=== PATIENT | female | born 1985 | race Caucasian/White ===

== ENCOUNTER 2017-07-27 20:13 | Inpatient (IN) | payer MEDICAID, OTHER ==
[2017-07-27] MEDS ORDERED: Ondansetron 4 MG Tab.DIS PO PRN (20:38)
[2017-07-27] MEDS ORDERED: Albuterol 8 GM Inhaler INH PRN (20:49)
[2017-07-27] MEDS ORDERED: Alum Hydrox/Mag Hydrox/Simeth 15 ML, Lidocaine 2% 15 ML PO PRN ×2 (20:56)
[2017-07-27] MEDS ORDERED: Calcium Carbonate 500 MG Tab.Chew PO PRN (20:58)
[2017-07-27] MEDS ORDERED: SUMAtriptan 50 MG Tab PO PRN (21:00)
[2017-07-27] MEDS ORDERED: Prazosin 1 MG Cap PO SCH (21:00)
[2017-07-27] MEDS ORDERED: Gabapentin 250 MG/5 ML Solution ML 470 ML Bottle PO SCH (21:00)
[2017-07-27] MEDS ORDERED: Ferrous Sulfate Solution 220 MG/5 ML ML 473 ML Bottle PO SCH (21:15)
[2017-07-27] MEDS: Acetaminophen Soln 650 MG/20.3 ML UD Cup PO PRN (21:52)
[2017-07-27] MEDS: ClonazePAM 1 MG Tab PO PRN (21:52)
[2017-07-27] MEDS: Pantoprazole 40 MG Vial IVPUSH SCH (21:53)
[2017-07-27] MEDS: Dextrose 5%-Lactated Ringers 1,000 ML IV SCH (23:05)
[2017-07-28] MEDS: hydrOXYzine HCl 25 MG Tab PO PRN ×2 (01:00→10:31)
[2017-07-28] MEDS: Sucralfate Suspension 1 GM/10 ML Cup PO SCH ×2 (08:27→10:31)
[2017-07-28] MEDS: Acetaminophen Soln 650 MG/20.3 ML UD Cup PO PRN (08:27)
[2017-07-28] MEDS ORDERED: lamoTRIgine 25 MG Tab PO SCH (09:00)
[2017-07-28] MEDS ORDERED: Gabapentin 250 MG/5 ML Solution ML 470 ML Bottle PO SCH (09:00)
[2017-07-28] MEDS: Dextrose 5%-Lactated Ringers 1,000 ML IV SCH (09:15)
[2017-07-28] MEDS ORDERED: Iron Sucrose Complex 500 MG in Sodium Chloride 0.9% 250 ML IV ONE (10:00)
[2017-07-28] MEDS: Pantoprazole 40 MG Vial IVPUSH SCH (10:08)
[2017-07-28] MEDS: ClonazePAM 1 MG Tab PO PRN (10:11)
[2017-07-28] MEDS: Ferrous Sulfate 325 MG Tab PO SCH ×2 (10:40→12:28)
--- NOTE | 2017-07-28 10:40 | CR ---
Abdomen 2V AP Flat Upright INDICATION: abdominal pain FINDINGS: Normal bowel gas pattern. No evidence for small bowel obstruction or free air. Postoperativ e changes in the left upper quadrant. Moderate stool throughout the colon.
[2017-07-28] MEDS ORDERED: MVI, Adult with Vitamin K 10 ML, Thiamine 100 MG, Magnesium Sulfate 2 GM, Folic Acid 1 ... IV ONE ×5 (14:00)
--- NOTE | 2017-07-28 15:27 | HP ---
HISTORY OF PRESENT ILLNESS: Catherine Alvarenga is a 31-year-old female who was admitted by ambulance to [facility] by the request of Rome Boyd on 07/27/2017. She went to the [facility], stating that she kept passing out. History of Lizett-en-Y gastric bypass surgery approximately 15 years ago. She was recently hospitalized for a bleeding ulcer at [facility]. She had an EGD, where she had the area of the bleeding ulcer repaired. She refuses to go back to [facility] and requested to come to [place] to see the Bariatric Surgery Department. Past medical history was reviewed. This morning, Catherine was reporting abdominal pain in her right and left lower abdominal quadrants. She states the pain is stabbing, sharp, and radiates to her back. Pain scale is 9/10. Chronicity: 5 years. Course: States it is about the same. Aggravating Factors: She states she has been constipated for 15 years and takes everything that she can think of to help with the constipation. Has not been able to eat, she states, for 5 years. Associated Signs And Symptoms: No nausea or vomiting. She thinks she has had some black stools. Denies heartburn. Denies reflux. Significant history of bleeding ulcer. She had a bleeding ulcer 5 years ago, which she said it was "patched," and she had a bleeding ulcer in the middle of June. Hemoglobin was as low as 7, she states. She had it, she said, fixed with an endoscopy, but she wants the ulcer out. Catherine states that she came here to [place] to have surgery. She wants a revision of her Lizett-en-Y surgery to lose weight. Her surgery for her Lizett-en-Y was 04/03/2003. Consult weight was 320, lowest weight 145, and she stabilizes, she said, between 170 and 200. Surgery was done in [place], [place]. SOCIAL HISTORY: Single. Employment, nonapplicable. Children, one daughter, age 8. Currently lives with family, takes care of her mom, who has a back stimulator and a history of lung cancer. Smokes one pack of cigarettes a day for greater than 14 years. Alcohol, denies any. Coffee, drinks one cup of coffee a day. Carbonation, occasionally drinks soda, but she shakes the carbonation out. Protein intake, unknown. Water, she said she does not drink any. Vitamins were reviewed. She takes one multivitamin, a gummy, once a day. She just started taking B12 injections. Does not take any other supplements. PAST SURGICAL HISTORY: 1. Lizett-en-Y gastric bypass surgery, as stated above. 2. Hysterectomy. She believes that both her ovaries are still in place. Hysterectomy was for endometriosis. 3. Tummy tuck. 4. Thigh lift. 5. [place] teeth extraction. PAST MEDICAL HISTORY: 1. Depression. 2. Anxiety. 3. Unspecified surgical malabsorption. 4. B12 deficiency. 5. Asthma. 6. Migraine headaches. 7. Perforated ulcer, 01/19/2012. REVIEW OF SYSTEMS: CONSTITUTIONAL: Reports weight has been stable. Denies any fever, chills, night sweats, or fatigue. EYES: Negative. ENT: Negative for hard of hearing. CARDIOVASCULAR: No chest pain, murmur, fast or irregular heartbeat. LUNGS: No shortness of breath or cough. GI: As above. MUSCULOSKELETAL: No joint pain or swelling. NEURO: She does report almost passing out. She gets weak when standing up. No headaches. PSYCHIATRIC: Positive for depression and anxiety. ENDOCRINE: No fatigue, excessive thirst, or urination. HEMOLYTIC/LYMPHATIC: Positive for GI bleed. Low hemoglobin. Rest of review of systems was negative for any pertinent positives and negatives. FAMILY HISTORY: Positive for lung cancer and asthma in mom. A sister with anxiety, depression, and allergies. PHYSICAL EXAMINATION: GENERAL: Catherine Alvarenga is a 31-year-old female. VITAL SIGNS: Height is 5 feet 4 inches. Weight is 194 pounds. BMI is 33.3. TPR is 97, 64, 16 and blood pressure is 113/60. HEENT: Pupils equal, round, and reactive to light and accommodation. Oropharynx negative. NECK: Supple. Negative for lymphadenopathy or thyromegaly. LUNGS: Clear to auscultation in all 4 [place]ke. No wheezing, rales, or rhonchi. HEART: Regular rate and rhythm without murmur, gallop, or rub. ABDOMEN: Soft. There is minimal right and left lower quadrant abdominal pain. No midepigastric tenderness. AND BREASTS: Deferred. NEURO: Cranial nerves II-XII intact. MUSCULOSKELETAL: Equal muscle strength in right and left upper and lower extremities. Full range of motion. PSYCHIATRIC: Angry. ASSESSMENT: 1. Near syncope. 2. Anemia. 3. History of gastrointestinal hemorrhage. 4. Chronic abdominal pain. 5. Chronic constipation. 6. Status post Lizett-en-Y gastric bypass surgery. 7. Unspecified surgical malabsorption. 8. B12 deficiency. 9. Iron deficiency anemia. 10.Low ferritin, 6. 11.Nicotine dependence. 12.Anxiety. 13.Depression. PLAN: 1. Admit to inpatient. 2. D5LR 100 mL/hour. 3. Venofer 500 mg IV today and repeat in a.m. 4. Bariatric consult. 5. Dietary consult. 6. Home medications restarted. The patient reports that she is here for a revision of her gastric bypass surgery to lose weight and requests to have surgery as soon as possible, and if she is unable to, she will leave the hospital. 1. Discussion regarding starting recommended vitamins and supplements. 2. Education in regard to protein intake, 65 grams of protein and 64 ounces of water. The patient was agreeable to this, and she will get her IV Venofer today and tomorrow, be re-evaluated and possible discharge tomorrow. Discussion regarding consultation class that she can come on , 08/04/2017, and someone will be up from the clinic to discuss setting her up for this consultation class. Katy Mata PA-C /[id number]
[2017-07-28] MEDS ORDERED: Prazosin 1 MG Cap PO SCH (21:00)
--- NOTE | 2017-08-01 10:55 | DISCH ---
ADMISSION DIAGNOSES: 1. History of gastrointestinal bleed, mid June. 2. Hemoglobin of 8. 3. Low ferritin. 4. Chronic abdominal pain. 5. Chronic constipation. 6. Status post Lizett-en-Y gastric bypass surgery. 7. Unspecified surgical malabsorption and B12 deficiency. 8. Anxiety and depression. DISCHARGE DIAGNOSES: The patient left AMA. HISTORY: Catherine Alvarenga presented to [facility] for chronic abdominal pain and history of bleeding ulcer. She stated that she was weak and would nearly pass out. She had a bleeding ulcer at [facility] in mid June and had an EGD, and the area of bleeding ulcer was repaired. She refused to go to [facility] and requested to come to [facility] to see the Bariatric Department, and she requested night of admission, 07/27/2017, total revision of her gastric bypass surgery. She proceeded to request revision of a gastric bypass surgery on 07/28/2017. Her ferritin was 6. She was given Venofer 500 mg IV, and after receiving half of that bag, she opted to go home, if she was not going to have revision of her gastric bypass surgery. She wanted to lose more weight. She left before receiving any dietary consultation and any consultations from our bariatric staff. OBJECTIVE: Non-applicable, the patient left without being discharged. Orders: She is to resume same treatment and medications that she had prior to admission.
== END 2017-07-28 13:00 | disposition left against medical advice (07) | DRG 312 ==
LOC: JP.2SS 20:13
PROVIDERS: ADMIT Surgery; ATTEND Physician Assistant Medical
DX: R55 Syncope and collapse (principal); K91.2 Postsurgical malabsorption, not elsewhere classified; D50.9 Iron deficiency anemia, unspecified; E53.8 Deficiency of other specified B group vitamins; F32.9 Major depressive disorder, single episode, unspecified; F41.9 Anxiety disorder, unspecified; Z87.11 Personal history of peptic ulcer disease; Z98.84 Bariatric surgery status; Z98.0 Intestinal bypass and anastomosis status; G43.909 Migraine, unspecified, not intractable, without status migrainosus; J45.909 Unspecified asthma, uncomplicated; G89.29 Other chronic pain; K59.09 Other constipation; R10.30 Lower abdominal pain, unspecified
CPT/HCPCS: 36415; 74020; 74020-26; 80053; 81001; 82306; 82607; 82728; 82746; 83735; 84100; 84425; 85025; A9270-GY; C9113; J1756; J7042; J7050